=== PATIENT | female | born 1965 | race Caucasian/White ===

== ENCOUNTER 2017-02-08 07:49 | Inpatient (IN) | payer BC ==
[2017-01-11 10:14] VITALS: Ht 170.2 cm; Wt 178.4 kg
--- NOTE | 2017-01-11 10:35 | PAT Medication Instructions ---
Service Date Jan 11, 2017. Current Home Medication List Amoxicillin (Amoxicillin), 1 TAB PO BID Aspirin (Aspirin Ec), 81 MG PO QAM Cetirizine (Zyrtec), 10 MG PO QPM Cholecalciferol (Vitamin D), 5,000 INTER.UNIT PO QAM Furosemide (Lasix), 40 MG PO QAM Irbesartan (Avapro), 300 MG PO QAM Levothyroxine Sodium (Synthroid), 75 MCG PO QAM Magnesium Oxide (Mag-Oxide), 400 MG PO QPM Potassium Chloride Pwd (Klor-Con Pwd), 40 MEQ PO QAM Potassium Chloride Pwd (Klor-Con Pwd), 60 MEQ PO QPM Pyridoxine (Vitamin B6), 100 MG PO QPM Tramadol (Ultram), 50 MG PO Q4H PRN for Pain [Cataflam], 50 MG PO QAM [Retin A], 1 APPLN TOP QPM Medication Instructions For Your Scheduled Surgery - Hold the following medications 1 week prior to surgery per surgeon's instructions: [Cataflam], 50 MG PO QAM - Hold the following medications 24 hours prior to surgery: [Retin A], 1 APPLN TOP QPM - Hold the following medications the morning of surgery: Irbesartan (Avapro), 300 MG PO QAM Furosemide (Lasix), 40 MG PO QAM Cholecalciferol (Vitamin D), 5,000 INTER.UNIT PO QAM - Take the following medications the morning of surgery with a sip of water OTHERWISE NOTHING TO EAT OR DRINK AFTER MIDNIGHT: Tramadol (Ultram), 50 MG PO Q4H PRN for Pain (may take if needed up to 4 hours prior to surgery) Aspirin (Aspirin Ec), 81 MG PO QAM Levothyroxine Sodium (Synthroid), 75 MCG PO QAM Amoxicillin (Amoxicillin), 1 TAB PO BID - Take the following medications as scheduled the night before surgery: Tramadol (Ultram), 50 MG PO Q4H PRN for Pain Cetirizine (Zyrtec), 10 MG PO QPM Magnesium Oxide (Mag-Oxide), 400 MG PO QPM Potassium Chloride Pwd (Klor-Con Pwd), 40 MEQ PO QAM Potassium Chloride Pwd (Klor-Con Pwd), 60 MEQ PO QPM Pyridoxine (Vitamin B6), 100 MG PO QPM Amoxicillin (Amoxicillin), 1 TAB PO BID If you have any questions please call us at [phone] or [phone] or [phone]
[2017-01-11 11:13] LABS: BASO % 1.2 %; BASO ABS # 0.09 K/uL (0-0.2); COMPLETE YES; HEMATOCRIT 42.7 % (37-47); IG% 0.4 %; LYMPH % 20.2 %; LYMPH ABS # 1.57 K/uL (1.2-3.4); MEAN CORPUSCULAR HEMOGLOBIN 29.6 pg (25-34); MEAN CORPUSCULAR HGB CONC 32.6 g/dl (32-36); MEAN PLATELET VOLUME 10.4 fL (7.4-10.4); MONO % 6.8 %; NEUT % 65.4 %; PLATELET COUNT 327 K/uL (130-400); RED BLOOD COUNT 4.69 M/uL (4.2-5.4); WHITE BLOOD COUNT 7.77 K/uL (4.8-10.8)
--- NOTE | 2017-01-11 11:17 | DIAGNOSTIC IMAGING REPORT ---
CHEST PREADMISSION(PA/LAT) CLINICAL HISTORY: Preoperative evaluation. COMPARISON STUDY: Chest radiograph October 28, 2014. FINDINGS: Incidental note is made of an azygos fissure. There is no pneumothorax or pleural effusion. There is no consolidation to suggest pneumonia. Pulmonary vascularity is normal. Cardiomediastinal silhouette is normal. The appearance of the chest is unchanged. IMPRESSION: No acute cardiopulmonary findings. Electronically signed by: Hiram Romero M.D. 01/11/2017 11:16 AM Dictated Date/Time: 01/11/2017 11:16 AM
[2017-01-11 11:25] LABS: PARTIAL THROMBOPLASTIN RATIO 1.1; PROTHROMBIN TIME (PATIENT) 10.3 SECONDS (9.0-12.0)
[2017-01-11 12:40] LABS: BUN/CREATININE RATIO 15.2 (10-20); CALCIUM 9.4 mg/dl (8.5-10.1); CREATININE 0.76 mg/dl (0.60-1.20); POTASSIUM 4.3 mmol/L (3.5-5.1)
[2017-01-11 12:42] LABS: C-REACTIVE PROTEIN 1.07 mg/dl (0-0.29)
--- NOTE | 2017-01-31 18:46 | HISTORY & PHYSICAL EXAMINATION ---
DATE OF ADMISSION: 02/08/2017 CHIEF COMPLAINT: Left knee pain. HISTORY OF PRESENT ILLNESS: A 51-year-old female from [facility] who is now about 2 years out from a right knee replacement, presents for surgical treatment of her left knee. She has got a long history of bilateral knee pain and discomfort. She went through extensive conservative treatment over the years which has failed. She underwent a right knee replacement 2 years ago and has done well from this. She has continued to be bothered by pain and discomfort in her left knee. She has been through extensive conservative care including viscous supplementations, steroid shots. She has tried to lose weight but unsuccessfully. Walking tolerance is a couple of blocks. She has nighttime pain. She would like to have her left knee replaced. PAST MEDICAL HISTORY: 1. Hypertension. 2. Hypothyroidism. 3. Morbid obesity with a BMI of 61.5. 4. Low back pain/sciatica. PAST SURGICAL HISTORY: Include: 1. Tonsillectomy. 2. . 3. Tubal ligation. 4. Cholecystectomy. 5. Herniorrhaphy. 6. Right knee replacement done on 11/19/2014. ALLERGIES: DUST AND MOLD. CURRENT MEDICINES: Include 1. Avapro 300 mg daily. 2. Klor-Con 20 mEq a day. 3. Lasix 40 mg a day. 4. Magnesium oxide 400 mg a day. 5. Magnesium B6 100 mg a day. 6. Vitamin D 5000 international units a day. 7. Cataflam 50 mg a day. 8. Mobic 7.5 mg a day. 9. Tramadol p.r.n. 10. Amoxicillin for acne. 11. Retin-A for acne. 12. Synthroid 75 mcg a day. 13. Claritin 1 tablet as needed for allergies. SOCIAL HISTORY: This is a 51-year-old female patient from [place]. 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 REVIEW OF SYSTEMS: Negative for diabetes, neurologic problems, vascular problems, bleeding disorders. Denies any chest pain or shortness of breath. No history of DVT or PE. No known bleeding problems. PHYSICAL EXAMINATION: GENERAL: Obese, middle-aged female. HEENT: Benign. NECK: Supple. No lymphadenopathy. LUNGS: Clear to auscultation. HEART: Has a regular rate and rhythm. ABDOMEN: Soft, nontender, nondistended. EXTREMITIES: Grossly neurovascularly intact except as follows: Examination of the left knee reveals a large soft tissue envelope. Range of motion about 5 degrees short of full extension to 105 degrees of flexion limited by her soft tissues. No gross instability. No pain with hip motion. She does limp on the side when she walks. X-RAYS: X-rays of the left knee were reviewed. It shows advanced left knee DJD. She has complete loss of her medial joint space. She has some tibial femoral subluxation. ASSESSMENT: A 51-year-old female, 2 years out from right knee replacement with advanced left knee degenerative joint disease. She has failed conservative treatment. She would like to proceed with left knee replacement. PLAN: We talked about treatment and knee replacement. Will proceed. I did talk to her about the increased risk with her size and the risk specifically infection and wear and loosening. The patient understands and desires to proceed. Informed consent was obtained. Additional risks include but not limited to DVT, PE, , infection, neurological injury, vascular injury, bleeding problems, pain, limited range of motion, stiffness, failure to relieve her symptoms, incomplete relief of symptoms, need for further surgery in the future, etc. were explained. The patient understands and desires to proceed. Informed consent was obtained. As far as discharge plans, she is planning to be discharged home using [facility] home health program. We will likely consider putting some vancomycin into the cement due to her size and increased risk of infection. MARI
[2017-02-08] VITALS (9 sets, daily range): BP systolic 101–142; BP diastolic 69–82; PULSE 79–99; TEMP 36.5–36.9; O2SAT 94–99
[~2017-02-08] VITALS: Ht 170.2 cm; Wt 178.4 kg
[~2017-02-08 07:49] MED LIST: ACETAMINOPHEN 500 MG TAB PO SCH; AMX500 PO; ASPI81TA28 PO; BUPIVACAINE 0.5 % 5 MG/1 ML PF 10ML VIAL ONE; BUPIVACAINE LIPOSOME 266 MG, BUPIVACAINE/EPINEPHRINE INJ 50 ML, SODIUM CHLORIDE 0.9% PF... INFIL SCH; BUPIVACAINE/EPINEPHRINE 0.25% 10 ML VIAL ONE; CATAFLAM PO; CEFAZOLIN 3000 MG/65 ML D5W 65 ML IV SCH; CETI10TA84 PO; CHOL100010 PO; FAMOTIDINE 20 MG TAB PO SCH; GABAPENTIN 300 MG CAP PO SCH; IRBE-39 PO; LACTATED RINGER'S 1000ML 1,000 ML IV SCH; LACTATED RINGER'S 1000ML IV SCH; LACTATED RINGER'S 500 ML IV SCH; LSX/40 PO; MAGN400T24 PO; METOCLOPRAMIDE HCL 10 MG TAB PO SCH; POTA1POW PO; PYRI100T4 PO; RETIN A TOP; SCOPOLAMINE 1.5 MG TDSY TD SCH; SYN75 PO; TRAM-10 PO; TRANEXAMIC ACID INJ 1,000 MG in SODIUM CHLORIDE 0.9% 100ML 100 ML IV SCH
--- NOTE | 2017-02-08 08:31 | History & Physical Bridge Note ---
H&P Re-Evaluation Bridge Note: I have examined the patient, reviewed the History & Physical and in the interval since the performance of the History & Physical I have noted the following changes of clinical significance: No changes noted
[2017-02-08] MEDS ORDERED: ATROPINE SULFATE 0.1 MG/ML 5ML SYR IV PRN (09:00)
[2017-02-08] MEDS ORDERED: EpHEDrine SULFATE INJ 50 MG/ML AMP IV PRN (09:00)
[2017-02-08] MEDS ORDERED: ONDANSETRON INJ 2 MG/ML 2 ML VIAL IV PRN ×2 (09:00→13:15)
[2017-02-08] MEDS ORDERED: MEPERIDINE HCL 25 MG/ML CARP IV PRN (09:00)
[2017-02-08] MEDS ORDERED: PHENYLEPHRINE 100MCG/ML 5ML SYR IV PRN (09:00)
[2017-02-08] MEDS ORDERED: LABETALOL HCL IV 5 MG/ML 20ML IV PRN (09:00)
[2017-02-08] MEDS ORDERED: FENTANYL CITRATE INJ 50 MCG/1 ML 2 ML VIAL IV PRN (09:00)
[2017-02-08] MEDS ORDERED: NALOXONE HCL 0.4 MG/1 ML VIAL/CARP IV PRN (09:00)
[2017-02-08] MEDS ORDERED: HYDROmorphone INJ 2 MG/ML SYR/VIAL IV PRN (09:00)
[2017-02-08] MEDS ORDERED: FLUMAZENIL 0.1 MG/1 ML 10 ML VIAL IV PRN (09:00)
[2017-02-08] MEDS ORDERED: MIDAZOLAM HCL 1 MG/ML 2ML VIAL ONE ×2 (09:21→11:01)
[2017-02-08] MEDS ORDERED: SODIUM CHLORIDE 0.9% PF 50 ML VIAL ONE (10:33)
[2017-02-08] MEDS ORDERED: BUPIVACAINE LIPOSOME 1/3% 266 MG/20 ML VIAL INFIL ONE (10:33)
[2017-02-08] MEDS ORDERED: BACITRACIN 50000 UNIT VIAL ONE (10:33)
[2017-02-08] MEDS ORDERED: VANCOMYCIN HCL 1000MG/20ML VIAL ONE (10:34)
[2017-02-08] MEDS ORDERED: BUPIVACAINE/EPINEPHRINE 0.25% 10 ML VIAL ONE (10:43)
[2017-02-08] MEDS ORDERED: BUPIVACAINE/EPINEPHRINE 0.25% 1:200,000 30 ML VIAL ONE (11:00)
[2017-02-08] MEDS ORDERED: KETAMINE HCL INJ 50 MG/ML 10 ML VIAL ONE (11:01)
[2017-02-08] MEDS ORDERED: ONDANSETRON INJ 2 MG/ML 2 ML VIAL ONE (12:06)
[2017-02-08] MEDS ORDERED: PHENYLEPHRINE 100MCG/ML 5ML SYR ONE (12:07)
[2017-02-08] MEDS ORDERED: PROPOFOL IV EMULSION 10 MG/ML 20 ML VIAL IV ONE (12:44)
[2017-02-08] MEDS ORDERED: EpHEDrine SULFATE 50MG/5ML SYR ONE (13:11)
--- NOTE | 2017-02-08 13:12 | [facility] Post Operative Brief Note ---
Immediate Operative Summary Operative Date Feb 08, 2017. Pre-Operative Diagnosis Advanced Left Knee Degenerative Joint Disease Post-Operative Diagnosis Advanced Left Knee Degenerative Joint Disease Procedure(s) Performed Left Total Knee Arthroplasty Surgeon Dr. Garcia Wine Specialist Surgeon(s) JOANN Cunningham Estimated Blood Loss 50 ml Findings Left Knee DJD Fluids (cc crystalloids) 1300 cc Specimens A. Left Knee Bone and Tissue Drains None Anesthesia Spinal Complication(s) None Disposition Recovery Room / PACU
[2017-02-08] MEDS ORDERED: MAGNESIUM HYDROXIDE SUSP 30 ML UDC PO PRN (13:15)
[2017-02-08] MEDS ORDERED: ZOLPIDEM TARTRATE 5 MG TAB PO PRN (13:15)
[2017-02-08] MEDS ORDERED: MoRPHine SULFATE 2 MG/ML CARP IV PRN (13:15)
[2017-02-08] MEDS ORDERED: METOCLOPRAMIDE HCL INJ 5 MG/ML 2 ML VIAL IV PRN (13:15)
[2017-02-08] MEDS ORDERED: SILVER SULFADIAZINE 1% CR 50 GM JAR EXT PRN (13:15)
[2017-02-08] MEDS ORDERED: BISACODYL 10 MG SUPP PR PRN (13:15)
[2017-02-08] MEDS ORDERED: DiphenhydrAMINE HCL 50 MG/ML VIAL IV PRN (13:15)
[2017-02-08] MEDS ORDERED: ALUMINUM/MAGNESIUM/SIMETH (MAALOX MAX) 30 ML UDC PO PRN (13:15)
--- NOTE | 2017-02-08 13:57 | DIAGNOSTIC IMAGING REPORT ---
LEFT KNEE 1 OR 2 VIEWS ROUTINE CLINICAL HISTORY: 51 years-old Female presenting with left degenerative joint disease. TECHNIQUE: Frontal and crosstable lateral views of the left knee were obtained. COMPARISON: 11/08/2016. FINDINGS: Postsurgical changes of total left knee arthroplasty with patellar resurfacing. Expected intra-articular and soft tissue emphysema. Overlying skin petty. No evidence of acute fracture or hardware complication. IMPRESSION: Expected postsurgical findings status post total left knee arthroplasty with patellar resurfacing. Electronically signed by: Brennan Phelan M.D. 02/08/2017 1:56 PM Dictated Date/Time: 02/08/2017 1:55 PM
--- NOTE | 2017-02-08 14:03 | Anesthesiology Progress Note ---
Anesthesia Post Op Note Date & Time Feb 08, 2017 at 14:03 Vital Signs Pain Intensity: 0 Vital Signs Past 12 Hours Date Time Temp Pulse Resp B/P (MAP) Pulse Ox O2 Delivery O2 Flow Rate FiO2 02/08/17 13:55 36.6 85 16 117/76 98 Nasal Cannula 3 02/08/17 13:40 36.6 83 16 107/74 98 Nasal Cannula 3 02/08/17 13:25 93 16 104/77 98 Nasal Cannula 3 02/08/17 13:16 36.5 91 16 108/75 98 Nasal Cannula 3 02/08/17 08:58 95 Room Air 02/08/17 08:57 36.8 90 20 104/82 Notes Mental Status: alert / awake / arousable, participated in evaluation Pt Amnestic to Procedure: Yes Nausea / Vomiting: adequately controlled Pain: adequately controlled Airway Patency, RR, SpO2: stable & adequate BP & HR: stable & adequate Hydration State: stable & adequate Neuraxial Anesthesia: was administered, sensory block is resolving Anesthetic Complications: no major complications apparent
[2017-02-08] MEDS: OXYCODONE HCL IR 5 MG TAB (IMMEDIATE RELEASE) PO PRN (15:13)
[2017-02-08] MEDS: CHECK SCOPOLAMINE PATCH PLACEMENT SCH ×2 (15:34→23:47)
[2017-02-08] MEDS: D5W AND 1/2NSS + 20MEQ KCL 1,000 ML IV SCH ×2 (15:34→21:19)
[2017-02-08] MEDS: KETOROLAC TROMETHAMINE 30 MG/ML VIAL IV. SCH ×2 (15:41→21:34)
[2017-02-08] MEDS: FERROUS GLUCONATE 324 MG TAB PO SCH (18:02)
[2017-02-08] MEDS ORDERED: TRANEXAMIC ACID INJ 1,000 MG in SODIUM CHLORIDE 0.9% 100ML 100 ML IV SCH (19:15)
[2017-02-08] MEDS: CEFAZOLIN IV 2,000 MG in DEXTROSE 5% 50ML 50 ML IV SCH (20:12)
[2017-02-08] MEDS ORDERED: [UNRECOGNIZED DRUG - OTHER] TOP SCH (21:00)
[2017-02-08] MEDS: ASPIRIN 325 MG ECTAB PO SCH (21:20)
[2017-02-08] MEDS: CETIRIZINE HCL 10 MG TAB PO SCH (21:20)
[2017-02-08] MEDS: SENNA 8.6 MG TAB PO SCH (21:20)
[2017-02-08] MEDS: AMOXICILLIN 500 MG CAP PO SCH (21:20)
[2017-02-08] MEDS: DOCUSATE SODIUM 100 MG CAP PO SCH (21:20)
[2017-02-08] MEDS: MAGNESIUM OXIDE 400 MG TAB PO SCH (21:21)
[2017-02-08] MEDS: POTASSIUM CHLORIDE PWD 20 MEQ PACK PO SCH (21:22)
[2017-02-08] MEDS: PYRIDOXINE HCL 50 MG TAB PO SCH (21:23)
[2017-02-08] MEDS: TAPENTADOL ER 50 MG TABCR PO SCH (21:28)
[2017-02-08] MEDS: ACETAMINOPHEN 500 MG TAB PO SCH (21:33)
--- NOTE | 2017-02-08 23:21 | OPERATIVE REPORT ---
DATE OF OPERATION: 02/08/2017 SURGEON: Bj Garcia MD ECMO SPECIALIST: JOANN Locke PREOPERATIVE DIAGNOSIS: Left knee degenerative joint disease. POSTOPERATIVE DIAGNOSIS: Same. PROCEDURE PERFORMED: Left cemented posterior stabilized total knee arthroplasty. COMPLICATIONS: None. ESTIMATED BLOOD LOSS: 50 mL. FLUID REPLACEMENT: 1300 mL crystalloid fluid replacement. TOURNIQUET TIME: 83 minutes at 400 mmHg. ANESTHESIA: Spinal with adductor canal block. DRAINS: None. SPECIMENS: Left knee sent for pathology. OPERATIVE INDICATIONS: The patient is a 51-year-old morbidly obese female who has had a long history of bilateral knee pain and discomfort. She underwent a right knee replacement 2 years ago and has done extremely well from this. She had failed conservative treatment with respect to her left knee and elected to proceed with total knee arthroplasty. OPERATIVE FINDINGS: Operative findings revealed extensive advanced grade 4 [id number] disease in all 3 compartments, most severe in the medial and patellofemoral compartments. She had a varus deformity to her knee. Large knee joint effusion. Very large soft tissue envelope. OPERATIVE IMPLANTS: Operative implants consisted of: 1. Biomet Vanguard size 67.5 left posterior stabilized femoral component. 2. Biomet Vanguard 360 size 75 tibial tray with a 5-mm offset and a 14 x 80-mm stem and a small cruciate wing. 3. A 12-mm posterior stabilized polyethylene insert. 4. A 31 x 8 all poly patella. OPERATIVE PROCEDURE: The patient was taken to the operating room, identified and placed on the operating table in the supine position. All contact areas were appropriately padded. IV antibiotics were provided by anesthesia team. A spinal anesthetic and adductor canal block had been provided in the holding area. Pope catheter was placed in sterile fashion. Left thigh tourniquet was then placed. The left lower extremity was then prepped and draped in the usual sterile fashion. The left lower leg was elevated and exsanguinated with Esmarch and tourniquet was placed at 400 mmHg. An anterior approach of the left knee was then performed through a longitudinal incision centered over the patella. Sharp dissection was carried through the subcutaneous tissues down to the level of the extensor mechanism. She did have a very short quad tendon. A medial parapatellar arthrotomy incision was made and as a result, I had to extend this incision up into the muscle belly. Some subperiosteal dissection was carried out medially. The fat pad was resected from beneath the patellar tendon. The leg was then subluxated laterally. The knee was flexed. The osteophytes were taken off the distal femur. The ACL and PCL were released from the distal femur and the tibia subluxated anteriorly. The tibia was subluxated anteriorly. I then used a saw to resect the tibial eminence. I elected to place a tibial stem due to her extremely large size and deformity to her knee and concerns with early loosening of the tibial tray. An intramedullary guide was placed. I then reamed up to a size 14. The intramedullary cutting guide was then placed on the tibia to cut 2 mm off the most deficient aspect of the medial side. The tibial cut was made. Tibia was sized to a size 75. Some osteophytes were taken off medial and posteromedially. The tibia was then prepared for a small cruciate wing and a 5-mm offset stem. Once this was performed, a trial implant was placed and fit perfectly. Attention was then drawn to the femur. The distal femur was entered with a sharp drill. Intramedullary canal was suctioned. A left 5-degree valgus cutting guide was placed. Distal femoral cutting block was then pinned in place. Distal femoral cut was made to take an additional 3 mm of bone off the distal femur. The femur was then sized to a size 67.5. We did downsize this slightly. The AP cutting block was pinned parallel to the epicondylar axis, which was 5 degrees of external rotation. The anterior cut, anterior chamfer, posterior cut, and posterior chamfer cuts were made. Box cutting guide was placed and adjusted slightly lateral and the box cut was made. The knee was flexed. The remnants of the medial and lateral menisci were excised. The osteophytes were taken off the posterior aspect of the femur. Trial femoral component was placed. We then placed the tibial insert. The 10 insert just seemed a little bit loose, so we used a 12, which seemed to fit perfectly. Attention was then drawn to the patella. The patella was cleaned of all soft tissues. The patella thickness measured 23 mm and cut down to 14. It was sized to a size 31 patella. Lug holes were drilled for the 31 patella. Lateral osteophyte was removed. Patellar button was placed. Knee was taken through range of motion and the patella tracked nicely with no thumbs test. Attention was then drawn toward placement of permanent components. All trial implants were removed. The wound was irrigated with copious amounts of pulsatile lavage solution. A double batch of Palacos G cement was then mixed with an additional gram of vancomycin due to her increased risk of infection. A size 67.5 left posterior stabilized femoral component, size 75 Vanguard 360 tray with a stem was then placed with cementing the metaphyseal and surface segments only and a 31 x 8 all poly patella were then cemented in place. All extraneous cement was removed. The knee was brought out into full extension until cement hardened. A final cement check was then performed. Pericapsular tissues were injected with 100 mL of a combination of 20 mL of Exparel, 30 mL of normal saline, and 50 mL of 0.25% Marcaine with epinephrine. The patient did receive 1 gram of tranexamic acid. The tourniquet was then let down for a tourniquet time of 83 minutes. Hemostasis was assured with use of electrocautery. The wound was once again irrigated. The extensor mechanism was then closed with a combination of #1 PDS suture and #1 Vicryl suture in a [id number] fashion. Extensor mechanism was checked and found to be intact. The subcutaneous tissues were then closed with 2-0 Dexon suture in a buried interrupted fashion. Skin was closed with skin petty. Leg was then cleaned and dried and a sterile dressing of Xeroform, 4 x 4, sterile cast padding and Júnior bandage were applied. The patient was then transferred to the recovery room in stable condition. The patient tolerated the procedure well with no complications. All needle and sponge counts were correct at the end of the operation. I attest to the content of the Intraoperative Record and any orders documented therein. Any exception s are noted below.
[2017-02-09 04:09] VITALS: BP 129/82; PULSE 85; TEMP 36.8; O2SAT 96
[2017-02-09] MEDS: D5W AND 1/2NSS + 20MEQ KCL 1,000 ML IV SCH ×2 (04:21→10:28)
[2017-02-09] MEDS: KETOROLAC TROMETHAMINE 30 MG/ML VIAL IV. SCH ×4 (04:23→22:06)
[2017-02-09] MEDS: CEFAZOLIN IV 2,000 MG in DEXTROSE 5% 50ML 50 ML IV SCH (04:27)
[2017-02-09] MEDS: LEVOTHYROXINE 75 MCG TAB PO SCH (06:02)
[2017-02-09] MEDS: ACETAMINOPHEN 500 MG TAB PO SCH ×3 (06:03→22:06)
[2017-02-09 06:31] LABS: HEMATOCRIT 36.9 % (37-47); MEAN CELL VOLUME 92.5 fL (80-100); MEAN CORPUSCULAR HEMOGLOBIN 29.8 pg (25-34); MEAN CORPUSCULAR HGB CONC 32.2 g/dl (32-36); MEAN PLATELET VOLUME 10.3 fL (7.4-10.4); PLATELET COUNT 268 K/uL (130-400); RED BLOOD COUNT 3.99 M/uL (4.2-5.4); WHITE BLOOD COUNT 9.08 K/uL (4.8-10.8)
[2017-02-09 07:01] LABS: BUN/CREATININE RATIO 13.1 (10-20); CALCIUM 8.2 mg/dl (8.5-10.1); CREATININE 0.82 mg/dl (0.60-1.20); POTASSIUM 5.1 mmol/L (3.5-5.1)
[2017-02-09 07:30] VITALS: BP 124/72; PULSE 80; TEMP 36.9; O2SAT 93
--- NOTE | 2017-02-09 07:58 | Anesthesiology Progress Note ---
Anesthesia Post Op Note Date & Time Feb 09, 2017 at 07:58 Vital Signs Pain Intensity: 0.0 Vital Signs Past 12 Hours Date Time Temp Pulse Resp B/P (MAP) Pulse Ox O2 Delivery O2 Flow Rate FiO2 02/09/17 07:30 36.9 80 16 124/72 (89) 93 Room Air 02/09/17 04:09 36.8 85 16 129/82 (98) 96 Room Air 02/08/17 23:55 Room Air 02/08/17 23:30 36.5 99 16 142/69 (93) 96 Room Air Notes Mental Status: alert / awake / arousable, participated in evaluation Pt Amnestic to Procedure: Yes Nausea / Vomiting: adequately controlled Pain: adequately controlled Airway Patency, RR, SpO2: stable & adequate BP & HR: stable & adequate Hydration State: stable & adequate Neuraxial Anesthesia: was administered, sensory block resolved Anesthetic Complications: no major complications apparent
[2017-02-09] MEDS: CHECK SCOPOLAMINE PATCH PLACEMENT SCH ×3 (08:00→23:49)
[2017-02-09] MEDS: POTASSIUM CHLORIDE PWD 20 MEQ PACK PO SCH ×2 (08:36→22:05)
[2017-02-09] MEDS: MULTIVITAMIN TAB PO SCH (08:37)
[2017-02-09] MEDS: OXYCODONE HCL IR 5 MG TAB (IMMEDIATE RELEASE) PO PRN (08:37)
[2017-02-09] MEDS: IRBESARTAN 150 MG TAB PO SCH (08:37)
[2017-02-09] MEDS: TAPENTADOL ER 50 MG TABCR PO SCH ×2 (08:37→21:03)
[2017-02-09] MEDS: CHOLECALCIFEROL 1000 INTER.UNIT TAB PO SCH (08:37)
[2017-02-09] MEDS: PANTOprazole SOD 40 MG TAB PO SCH (08:37)
[2017-02-09] MEDS: ASPIRIN 325 MG ECTAB PO SCH ×2 (08:38→21:03)
[2017-02-09] MEDS: FERROUS GLUCONATE 324 MG TAB PO SCH ×3 (08:38→17:45)
[2017-02-09] MEDS: FUROSEMIDE 40 MG TAB PO SCH (08:38)
[2017-02-09] MEDS: DOCUSATE SODIUM 100 MG CAP PO SCH ×2 (08:38→21:03)
[2017-02-09] MEDS: DICLOFENAC SOD 25 MG TABEC PO SCH (08:38)
[2017-02-09] MEDS: AMOXICILLIN 500 MG CAP PO SCH ×2 (08:38→21:04)
[2017-02-09 11:00] VITALS: BP 108/66; PULSE 85; TEMP 36.9; O2SAT 93
[2017-02-09 15:14] VITALS: BP 127/80; PULSE 86; TEMP 36.6; O2SAT 100
--- NOTE | 2017-02-09 15:18 | PROGRESS NOTE ---
DATE: 02/09/2017 DATE: 02/09/2017 SUBJECTIVE: A 51-year-old female postop day 1 from a left knee replacement. She is doing pretty well. Pain is controlled. Denies any chest pain or shortness of breath. Not feeling dizzy or lightheaded. OBJECTIVE: VITAL SIGNS: Temperature 36.9. Vital signs stable. PHYSICAL EXAMINATION: GENERAL: Pleasant, middle-aged female. She is sitting up in her bedside chair talking to her family. Looks pretty comfortable. EXTREMITIES: Examination of the left leg reveals the dressing to be clean, dry and intact. She can dorsiflex and plantarflex her foot appropriately. She is neurologically intact. LABORATORY DATA: Hemoglobin is 11.9, hematocrit 36.9. Electrolytes are stable. ASSESSMENT: A 51-year-old white female postop day 1 from left knee replacement, doing well. Pain is controlled. She is neurologically intact. PLAN: 1. DVT prophylaxis including thigh-high TEDs, SCDs, and aspirin twice a day. 2. PT/OT. Weight bear as tolerated. Left total knee protocol. 3. Pain control. Doing pretty well with current pain regimen. 4. Disposition. Plan to discharge to home with some home health once adequately recovered.
[2017-02-09] MEDS ORDERED: ASPEC325 PO (21:00)
[2017-02-09] MEDS ORDERED: ACET-24 PO (21:00)
[2017-02-09] MEDS ORDERED: MORP-157 PO (21:00)
[2017-02-09] MEDS ORDERED: RXC5 PO (21:00)
--- NOTE | 2017-02-09 21:03 | Discharge Instructions ---
Discharge Instructions Date of Service Feb 09, 2017. Admission Reason for Admission: Left Knee Degenerative Joint Disease Discharge Discharge Diagnosis / Problem: Left Knee Replacement Discharge Goals Goal(s): Decrease discomfort, Improve function, Increase independence, Improve disease control, Therapeutic intervention Activity Recommendations Activity Limitations: per Instructions/Follow-up section Weightbearing Status: Left weightbearing . Instructions / Follow-Up Instructions / Follow-Up ACTIVITY RECOMMENDATIONS: Physical Therapy: * You will go to physical therapy three times each week for four to six weeks after your surgery in order to regain your knee range of motion and to retrain your knee to work properly. * It is just as important to make sure you are getting your knee perfectly straight as it is to regain your knee bend. * Taking a pain pill an hour before therapy can help you have a more productive and comfortable therapy session. Home Exercise: * You were shown a series of exercises (heel props, heel slides, etc.) in the hospital. Do these exercises three to four times each day including the exercises you were shown in physical therapy. Walking: * Get up and walk several times each day. For the first four weeks, try not to stand or walk for more than one hour at a time. If you do stand or walk for more than one hour, you will not hurt anything, but your knee and leg will likely swell. * As you feel comfortable, you may change from the walker or crutches to a cane and then to independent walking. MEDICATIONS: New Medicine: * You will likely be taking one or more of these medications: 1. MS Contin - A long-acting pain medication. Take 1 tablet twice a day for the first ten days to decrease your baseline level of pain. 2. Oxycodone - A quick and shorter-acting pain medication. Take one to two tablets every four to six hours to lessen your pain. 3. Aspirin - Thins your blood to lessen the chance of forming a blood clot. * The most common side effects of pain medicine and iron are nausea and constipation. If nausea or constipation is too much of a problem or if you have any questions about your new medicines or doses, call [facility] at . We will try to help you manage these issues. VERY IMPORTANT TO READ AND REVIEW" Pain: * The immediate post-operative period after knee replacement surgery is often quite painful. * You are given a prescription for pain medicine. You should take it, as directed, when you need it, especially before physical therapy and before going to bed. Pain that interferes with sleep is very common and can last several months. * You will likely need pain medicine for the first four to six weeks. It will not stop all of the pain. The pain will lessen and as you feel better, you may change to milder pain medicine such as Tylenol. * The most common side effects of pain medicine are nausea and constipation, so don't take more than you need. SPECIAL CARE INSTRUCTIONS: TEDs/Elastic Stockings: * The white elastic stockings help limit swelling and prevent blood clots from forming in your legs. The more you wear them, the more they work. * Wear them for six weeks after knee replacement surgery and four weeks after partial knee replacement. Prevention of Infection: * Take antibiotics one hour before any dental cleaning, dental work, urological procedure, gastrointestinal procedure or any invasive surgery in order to prevent your new joint from getting infected. * You may get the antibiotics from the doctor performing the procedure or you may call our office at before and we will call in a prescription to the pharmacy of your choice. Things to Watch For: * Drainage from the incision site that occurs more than one week after your surgery. * Severely increased knee/leg pain or swelling. * Increased redness at the incision site. * Fever above 102 degrees Fahrenheit. * Unusual chest pain or shortness of breath. * Unusual pain or burning with urination. Call [facility] at with any of the above problems or if you have any questions about your medicines or recovery. FOLLOW UP VISIT: Make an appointment to see your doctor for approximately two weeks after surgery for a progress check and staple removal by calling the office at . Current Hospital Diet Patient's current hospital diet: Regular Diet Discharge Diet Recommended Diet: Regular Diet Procedures Procedures Performed: Left Total Knee Arthroplasty Pending Studies Studies pending at discharge: no Medical Emergencies . Who to Call and When: Medical Emergencies: If at any time you feel your situation is an emergency, please call [phone] immediately. . Non-Emergent Contact Non-Emergency issues call your: Surgeon . "Provider Documentation" section prepared by Bj Garcia. . VTE Core Measure Inpt VTE Proph given/why not?: Other Anticoagulation, T.E.D. Stockings, SCD's
[2017-02-09] MEDS: MAGNESIUM OXIDE 400 MG TAB PO SCH (22:05)
[2017-02-09] MEDS: SENNA 8.6 MG TAB PO SCH (22:05)
[2017-02-09] MEDS: CETIRIZINE HCL 10 MG TAB PO SCH (22:06)
[2017-02-09] MEDS: PYRIDOXINE HCL 50 MG TAB PO SCH (22:06)
[2017-02-09 22:55] VITALS: BP 133/77; PULSE 93; TEMP 36.7; O2SAT 95
[2017-02-10] MEDS: KETOROLAC TROMETHAMINE 30 MG/ML VIAL IV. SCH ×2 (04:50→09:48)
[2017-02-10 06:10] VITALS: BP 146/83; PULSE 89; TEMP 36.5; O2SAT 97
[2017-02-10] MEDS: LEVOTHYROXINE 75 MCG TAB PO SCH (06:27)
[2017-02-10] MEDS: ACETAMINOPHEN 500 MG TAB PO SCH (06:28)
[2017-02-10 07:20] VITALS: BP 138/84; PULSE 89; TEMP 36.7; O2SAT 98
[2017-02-10] MEDS: FERROUS GLUCONATE 324 MG TAB PO SCH (07:29)
[2017-02-10] MEDS: CHOLECALCIFEROL 1000 INTER.UNIT TAB PO SCH (07:30)
[2017-02-10] MEDS: MULTIVITAMIN TAB PO SCH (07:30)
[2017-02-10] MEDS: FUROSEMIDE 40 MG TAB PO SCH (07:30)
[2017-02-10] MEDS: PANTOprazole SOD 40 MG TAB PO SCH (07:30)
[2017-02-10] MEDS: IRBESARTAN 150 MG TAB PO SCH (07:31)
[2017-02-10] MEDS: DICLOFENAC SOD 25 MG TABEC PO SCH (07:31)
[2017-02-10] MEDS: DOCUSATE SODIUM 100 MG CAP PO SCH (07:33)
[2017-02-10] MEDS: OXYCODONE HCL IR 5 MG TAB (IMMEDIATE RELEASE) PO PRN (07:37)
[2017-02-10] MEDS: TAPENTADOL ER 50 MG TABCR PO SCH (07:37)
[2017-02-10 08:17] VITALS: BP 138/84; PULSE 89; TEMP 36.7; O2SAT 98
[2017-02-10] MEDS: POTASSIUM CHLORIDE PWD 20 MEQ PACK PO SCH (08:45)
[2017-02-10] MEDS: AMOXICILLIN 500 MG CAP PO SCH (08:45)
[2017-02-10] MEDS: ASPIRIN 325 MG ECTAB PO SCH (08:45)
[2017-02-10 09:07] VITALS: O2SAT 98
--- NOTE | 2017-02-10 14:25 | PROGRESS NOTE ---
DATE: 02/10/2017 DATE: 02/10/2017 SUBJECTIVE: A 51-year-old white female postop day 2 from left knee replacement. She is doing well. Pain is controlled. Therapy has gone pretty well. She feels like she is ready to go home. OBJECTIVE: VITAL SIGNS: Temperature 36.7. Vital signs stable. PHYSICAL EXAMINATION: GENERAL: Reveals a pleasant, middle-aged female. She is sitting up at her bedside chair and looks pretty comfortable. LUNGS: Clear to auscultation. HEART: Regular rate and rhythm. ABDOMEN: Soft, nontender, nondistended. EXTREMITY EXAMINATION: Grossly neurovascularly intact except as follows: Examination of the left leg reveals the dressing to be clean, dry and intact. She can dorsiflex and plantarflex her foot appropriately. She is neurologically intact. ASSESSMENT: A 51-year-old white female postoperative day 2 from a left knee replacement, doing well. Pain is controlled. She is neurologically intact. PLAN: 1. DVT prophylaxis including thigh-high TEDs, SCDs, and aspirin twice a day. 2. PT/OT. Weightbearing as tolerated. Left total knee protocol. 3. Pain control. Doing well with current pain regimen. 4. Disposition. Plan to discharge to home with some home health later today.
--- NOTE | 2017-02-15 15:22 | DISCHARGE SUMMARY ---
ADMITTING PHYSICIAN AND SURGEON: Dr. Garcia. ADMITTING DIAGNOSIS: Left knee degenerative joint disease. SURGERY PERFORMED: Left total knee arthroplasty. SECONDARY DIAGNOSES: Hypertension, hypothyroidism, mild obesity, low back pain, sciatica. CONSULTS: None obtained. HISTORY AND PHYSICAL EXAMINATION: Well documented in the patient's chart. HOSPITAL COURSE: The patient was admitted on 02/08/2017 underwent total knee arthroplasty, tolerated the procedure well. There were no complications. She was transferred to PACU postoperatively and later to the orthopedic floor for further care. She was given Ancef for antibiotic prophylaxis, AMARILIS stockings, SCDs and aspirin for DVT prophylaxis. Hemoglobin, hematocrit and vital signs were monitored during her hospital stay and remained stable. She did not require any blood transfusions. There were no complications. By postoperative day 2, she was tolerating a regular diet, pain was controlled with oral pain medicine. She was participating in physical therapy and had no signs or symptoms of deep vein thrombosis. On postop day 2, she was discharged home and set up with home health services, given printed discharge instructions including prescriptions for extra strength Tylenol, aspirin 325 mg b.i.d., MS Contin, oxycodone. Continue her home medications with the exception of her home dose of aspirin which was changed. Continue physical therapy, weightbearing as tolerated, AMARILIS stockings. Follow up in 10-12 days or sooner if there are any problems or concerns.
== END 2017-02-10 11:41 | disposition home health service (06) | DRG 470 ==
LOC: C.ACU 07:49 → C.3E 08:05 → ENRESERV 13:32
PROVIDERS: ADMIT Orthopaedic Surgery Sports Medicine; ATTEND Orthopaedic Surgery Sports Medicine
PROC: 0SRD0J9 Replacement of Left Knee Joint with Synthetic Substitute, Cemented, Open Approach (ICD-10-PCS; principal; 2017-02-08 10:30)
DX: M17.12 Unilateral primary osteoarthritis, left knee (principal); Z68.44 Body mass index [BMI] 60.0-69.9, adult; I10 Essential (primary) hypertension; E66.01 Morbid (severe) obesity due to excess calories; E03.9 Hypothyroidism, unspecified; M54.5 Low back pain; M54.10 Radiculopathy, site unspecified; M25.462 Effusion, left knee; M21.162 Varus deformity, not elsewhere classified, left knee; Z79.82 Long term (current) use of aspirin; Z79.899 Other long term (current) drug therapy; Z79.891 Long term (current) use of opiate analgesic

== ENCOUNTER 2022-01-14 08:11 | Observation (INO) ==
--- NOTE | 2022-01-01 11:44 | PAT Medication Instructions ---
Medication Instructions Date of Service January 01, 2022 Home Medications acetaminophen 500 mg tablet (Tylenol Extra Strength) 500 mg PO Q6H PRN Pain aspirin 81 mg tablet,delayed release (Adult Low Dose Aspirin) 81 mg PO QAM celecoxib 100 mg capsule 100 mg PO BID furosemide 40 mg tablet (Lasix) 40 mg PO QAM irbesartan 75 mg tablet 75 mg PO QAM potassium chloride 20 mEq tablet,extended release 100 meq PO QAM tramadol 50 mg tablet 50 mg PO HS PRN Pain cholecalciferol (vitamin D3) 125 mcg (5,000 unit) tablet (Vitamin D3) 125 mcg PO QAM levothyroxine 75 mcg tablet 75 mcg PO QAM magnesium 500 mg tablet 500 mg PO HS pyridoxine (vitamin B6) 100 mg tablet (Vitamin B-6) 100 mg PO QAM tramadol 50 mg tablet 50 mg PO BID vitamins A,C,A-wqkc-givvzv 14,320 unit-226 mg-200 unit capsule (PreserVision AREDS) 1 cap PO QAM ASK your surgeon for instructions celecoxib 100 mg capsule 100 mg PO BID STOP taking 2 weeks before surgery vitamins A,C,W-izft-vbgodt 14,320 unit-226 mg-200 unit capsule (PreserVision AREDS) 1 cap PO QAM DO NOT take the morning of surgery furosemide 40 mg tablet (Lasix) 40 mg PO QAM irbesartan 75 mg tablet 75 mg PO QAM potassium chloride 20 mEq tablet,extended release 100 meq PO QAM cholecalciferol (vitamin D3) 125 mcg (5,000 unit) tablet (Vitamin D3) 125 mcg PO QAM pyridoxine (vitamin B6) 100 mg tablet (Vitamin B-6) 100 mg PO QAM Take morning of surgery With a small sip of water, OTHERWISE NOTHING TO EAT OR DRINK AFTER MIDNIGHT: acetaminophen 500 mg tablet (Tylenol Extra Strength) 500 mg PO Q6H PRN Pain (if needed) aspirin 81 mg tablet,delayed release (Adult Low Dose Aspirin) 81 mg PO QAM (unless surgeon directed otherwise) tramadol 50 mg tablet 50 mg PO HS PRN Pain (if needed) levothyroxine 75 mcg tablet 75 mcg PO QAM tramadol 50 mg tablet 50 mg PO BID (if needed) Take evening before surgery acetaminophen 500 mg tablet (Tylenol Extra Strength) 500 mg PO Q6H PRN Pain (if needed) tramadol 50 mg tablet 50 mg PO HS PRN Pain (if needed) magnesium 500 mg tablet 500 mg PO HS tramadol 50 mg tablet 50 mg PO BID Other Notes If you have any questions please call us at [phone] or [phone] or [phone] or [phone]
--- NOTE | 2022-01-05 14:04 | Anesthesiology Consultation ---
Date of Service January 05, 2022 Assessment & Plan (1) Encounter for pre-operative examination: Chart Review Chart Review: Acceptable Risk for Surgery (pending preop Covid testing results ) and Patient seen in Pre Admission Testing Per PAT appt on 01/05/22, patient denies any recent travel or large group activities. No known Covid positive exposures or Covid related symptoms. No known Covid infection in the past 90 days. Pt is vaccinated for Covid. Preop Covid testing scheduled 01/12/22 = will await results. Educated on importance of self quarantining, social distancing and wearing mask in public for the patient one week prior to surgery and after Covid testing done Teaching & Discussion Pre-Anesthesia Teaching/Discussion Notes: Instructed NPO after midnight before surgery,except medications with 15 cc of water. Medication instructions provided according to the [facility] guidelines. History Surgery Operation Date: 01/14/22 08:50 Proposed Procedures p Right Total Hip Arthroplasty - jB Garcia MD Height/Weight Height: 5 ft 7 in Weight: 155.6 kg Allergies Allergy/AdvReac Type Severity Reaction Status Date / Time mold Allergy Unknown ITCHY EYES Verified 01/01/22 07:53 NOSE No Known Drug Allergies Allergy Unknown NONE Verified 01/01/22 07:53 pollen extracts Allergy Unknown SNEEZING, Verified 01/01/22 07:53 WATERY EYES Dust Allergy Unknown SEASONAL Uncoded 01/01/22 07:53 ALLERGY Medications Home Medications Medication Instructions Recorded Confirmed Last Taken acetaminophen 500 mg tablet 500 mg PO Q6H PRN Pain 12/31/21 01/01/22 Unknown (Tylenol Extra Strength) aspirin 81 mg tablet,delayed 81 mg PO QAM 12/31/21 01/01/22 Unknown release (Adult Low Dose Aspirin) celecoxib 100 mg capsule 100 mg PO BID 12/31/21 01/01/22 Unknown furosemide 40 mg tablet (Lasix) 40 mg PO QAM 12/31/21 01/01/22 Unknown irbesartan 75 mg tablet 75 mg PO QAM 12/31/21 01/01/22 Unknown potassium chloride 20 mEq 100 meq PO QAM 12/31/21 01/01/22 Unknown tablet,extended release tramadol 50 mg tablet 50 mg PO HS PRN Pain 12/31/21 01/01/22 Unknown cholecalciferol (vitamin D3) 125 125 mcg PO QAM 01/01/22 01/01/22 Unknown mcg (5,000 unit) tablet (Vitamin D3) levothyroxine 75 mcg tablet 75 mcg PO QAM 01/01/22 01/01/22 Unknown magnesium 500 mg tablet 500 mg PO HS 01/01/22 01/01/22 Unknown pyridoxine (vitamin B6) 100 mg 100 mg PO QAM 01/01/22 01/01/22 Unknown tablet (Vitamin B-6) tramadol 50 mg tablet 50 mg PO BID 01/01/22 01/01/22 Unknown vitamins A,C,E-ivui-mobsij 14,320 1 cap PO QAM 01/01/22 01/01/22 Unknown unit-226 mg-200 unit capsule (PreserVision AREDS) Past Medical History Medical History Chronic back pain Deejay's thyroiditis Hypertension Osteoarthritis Exercise / Class Metabolic Activity III < 4 Walking/Shop/Light housework (no chest pain or SOB with one flight of stairs- goes very slowly due hip pain ) Past Family History Family History Other No family history of adverse response to anesthesia Past Surgical History Surgical History History of bilateral tubal ligation History of section History of cholecystectomy History of colonoscopy History of dilatation and curettage History of incisional hernia repair History of tonsillectomy S/P knee replacement bilateral 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 No hx of seizures, stroke, IA, apnea/snoring. No hx of blood clots or blood transfusions Physical Exam Vital Signs VITALS BP 105/70 P 79 TEMP 98.1 SP02 95% RESP 16 Constitutional no acute distress ENMT Mouth: no TMJ clicking Thyromental Distance: > or= 3.5 Finger Breadths (3.5) Mallampati Class: II (smaller airway ) Neck neck extension not limited Respiratory normal respiratory effort; no respiratory distress Auscultation: lungs clear to auscultation bilaterally; no wheezes Cardiovascular Rate/Rhythm: regular rate and regular rhythm Heart Sounds: no murmur Vessels: no carotid bruit Musculoskeletal Spine: no pain with cervical ROM Extremities: extremities normal to inspection Psychiatric Orientation: alert Lab Results Anesthesia Preop Results Results Anesthesia Widget: WBC 7.75 K/ul (4.8-10.8) 01/05/22 Hgb 13.6 g/dl (12.0-16.0) 01/05/22 Hct 40.1 % (34.1-44.9) 01/05/22 Plt 258 K/uL (130-400) 01/05/22 Na 140 mmol/L (136-145) 01/05/22 K 4.0 mmol/L (3.5-5.1) 01/05/22 Cl 106 mmol/L (98-107) 01/05/22 CO2 28 mmol/L (21-32) 01/05/22 BUN 15 mg/dl (6-23) 01/05/22 Creat 0.67 mg/dl (0.6-1.2) 01/05/22 Glucose Level 92 mg/dl (70-99(Fasting)) 01/05/22 PT 10.4 Seconds (9.0-12.0) 01/05/22 PTT 26.7 Seconds (21.0-31.0) 01/05/22 INR 1.0 (0.9-1.1) 01/05/22 HA1c 5.2 % (4.5-5.6) 01/05/22 Blood Type B Negative 01/05/22 Antibody Screen NEGATIVE 01/05/22 Testing Electrocardiogram Date: 01/05/22 Findings: + NSR @ (75bpm ) and + no change from (January 11, 2017 per cardio ) Incomplete RBBB. Chest X-Ray Date: 01/05/22 Findings: + NAD FINDINGS: PA and lateral chest radiographs are compared to study dated 01/11/2017. The cardiomediastinal silhouette is top normal for projection. Chronic interstitial thickening is similar to previous. The lungs appear hyperinflated. There is bibasilar scarring/atelectasis. No airspace consolidation or large pleural effusion is identified. An accessory azygous fissure is incidentally noted. There is no pneumothorax. The skeletal structures are osteopenic. The bony thorax appears intact. Degenerative change is noted in the thoracic spine.
[~2022-01-14 08:11] MED LIST changes: -AMX500 PO; -ASPI81TA28 PO; -BUPIVACAINE LIPOSOME 266 MG, BUPIVACAINE/EPINEPHRINE INJ 50 ML, SODIUM CHLORIDE 0.9% PF... INFIL SCH; -BUPIVACAINE/EPINEPHRINE 0.25% 10 ML VIAL ONE; -CATAFLAM PO; -CEFAZOLIN 3000 MG/65 ML D5W 65 ML IV SCH; -CETI10TA84 PO; -CHOL100010 PO; +CeleBREX 200 MG CAP PO SCH; -GABAPENTIN 300 MG CAP PO SCH; -IRBE-39 PO; -LACTATED RINGER'S 1000ML 1,000 ML IV SCH; -LACTATED RINGER'S 1000ML IV SCH; -LACTATED RINGER'S 500 ML IV SCH; +LR 500ML BOLUS, THEN 15ML/HR IV SCH; +LR 60ML/HR IV SCH; -LSX/40 PO; -MAGN400T24 PO; -METOCLOPRAMIDE HCL 10 MG TAB PO SCH; +METOCLOPRAMIDE HCL 10 MG TABLET PO SCH; -POTA1POW PO; -PYRI100T4 PO; -RETIN A TOP; -SCOPOLAMINE 1.5 MG TDSY TD SCH; -SYN75 PO; +Scopolamine 1 MG TDSY TD SCH; -TRAM-10 PO; +TRANEXAMIC ACID 1,000 MG **IV Pre-op IV SCH; -TRANEXAMIC ACID INJ 1,000 MG in SODIUM CHLORIDE 0.9% 100ML 100 ML IV SCH
[2022-01-14 08:47] LABS: Hematocrit (blood only) 40.9 % (34.1-44.9); Hemoglobin 13.4 g/dl (12.0-16.0); Mean Corpuscular Hemoglobin 30.7 pg (25.0-34.0); Mean Corpuscular Hgb Conc 32.8 g/dL (32.0-36.0); Mean Corpuscular Volume 93.8 fL (80.0-100.0); Mean Platelet Volume 10.3 fL (9.4-12.3); Platelet Count 241 K/uL (130-400); RDW Coefficient of Variation 13.5 % (11.5-14.5); RDW Standard Deviation 46.5 fL (36.4-46.3); Red Blood Count 4.36 M/uL (3.93-5.22); White Blood Count 6.39 K/ul (4.8-10.8)
[2022-01-14] MEDS ORDERED: MIDAZOLAM HCL 1 MG/ML 2ML VIAL ONE ×2 (10:13→11:12)
[2022-01-14] MEDS ORDERED: MoRPHine SULFATE PF 1 MG/ML 10 ML AMP/VIAL ONE (10:33)
--- NOTE | 2022-01-14 10:44 | History & Physical Bridge Note ---
Date of Service January 14, 2022 History & Physical Bridge Note I have examined the patient, reviewed the History & Physical and in the interval since the performance of the History & Physical I have noted the following changes of clinical significance: no changes noted
[2022-01-14] MEDS ORDERED: EPINEPHrine INJ 1 MG/ML AMP ONE (10:47)
[2022-01-14] MEDS ORDERED: BUPIVACAINE 0.5 % 5 MG/1 ML MPF 30ML VIAL ONE (10:48)
[2022-01-14] MEDS ORDERED: PROPOFOL IV EMULSION 10 MG/ML 20 ML VIAL IV ONE ×2 (10:49→12:21)
[2022-01-14] MEDS ORDERED: ONDANSETRON INJ 2 MG/ML 2 ML VIAL ONE (10:52)
[2022-01-14] MEDS ORDERED: NALOXONE HCL 1 MG in SODIUM CHLORIDE 0.9% 1000ML 1,000 ML IV PRN (10:53)
[2022-01-14] MEDS ORDERED: MoRPHine SULFATE PF 1 MG/ML 10 ML AMP/VIAL INT SPINAL ONE (10:53)
[2022-01-14] MEDS ORDERED: LACTATED RINGER'S 500 ML IV PRN (10:53)
[2022-01-14] MEDS ORDERED: NALOXONE HCL 0.4 MG/1 ML VIAL/CARP IV PRN ×2 (10:53→13:56)
[2022-01-14] MEDS ORDERED: ePHEDrine sulfate 50 MG/ML AMP IV PRN (10:53)
[2022-01-14] MEDS ORDERED: ONDANSETRON INJ 2 MG/ML 2 ML VIAL IV PRN (10:53)
[2022-01-14] MEDS ORDERED: KETOROLAC 30 MG/ML VIAL IV PRN (10:53)
[2022-01-14] MEDS ORDERED: diphenhydrAMINE 50 MG/ML VIAL IV PRN (10:53)
[2022-01-14] MEDS ORDERED: NALOXONE HCL 0.08 MG in SYRINGE 1.8 ML IV PRN (10:53)
[2022-01-14] MEDS ORDERED: MEPERIDINE HCL 25 MG/ML CARP/VIAL IV PRN (10:53)
[2022-01-14] MEDS ORDERED: NALBUPHINE HCL INJ 10 MG/ML AMP IV PRN (10:53)
[2022-01-14] MEDS ORDERED: PROMETHAZINE HCL 12.5 MG in SODIUM CHLORIDE 0.9% 50 ML IV PRN (10:53)
[2022-01-14] MEDS ORDERED: SODIUM CHLORIDE 0.9% 1000ML 1,000 ML IV SCH (11:00)
[2022-01-14] MEDS ORDERED: NO NARCOTICS OR SEDATIVES SCH (11:00)
[2022-01-14] MEDS ORDERED: DC INTRASPINAL MORPHINE SCH (11:00)
[2022-01-14] MEDS ORDERED: fentaNYL citrate 100 MCG/2 ML VIAL ONE (12:14)
--- NOTE | 2022-01-14 13:29 | Operative Report ---
PG Post Operative Report Pre & Post Diagnosis Operation Date: 01/14/22 10:40 Pre-Op Diagnosis: Right Hip Degenerative Joint Disease Post-Op Diagnosis: Right Hip Degenerative Joint Disease I identified the patient and participated in the time-out.: Yes Procedure Operation Date: 01/14/22 10:40 Actual Procedures p Right Total Hip Arthroplasty(Right) - Bj Garcia MD Surgeon Bj Garcia MD Bilingual Research Interviewer Price Betancourt PA-C Estimated Blood Loss 300 Findings Consistent with Post-Op Diagnosis Operative findings were advanced right hip DJD. She had pretty extensive grade 4 [id number] disease of the femoral head and acetabulum. Significant erosive disease of the acetabular as well as the femoral head. Moderate-sized joint effusion. Specimens Right femoral head sent for pathology Anesthesia Type Spinal MAC Complications none Indications Patient is a 56-year-old female with past several year history of increasing right hip pain discomfort is gotten secondarily worse over the past year. She failed all conservative measures. She is attempted weight loss but with limited success. She has lost somewhat weight but having difficulty due to her limited mobility. X-rays show advanced right hip arthritis. She elected proceed with surgical treatment. She was fully aware that based on her size that she is at increased risk for a complication from the surgery. Description of Procedure Operative implants consist of: 1. Biomet G7 size 54 mm acetabular shell. 2. 6.5 cancellous acetabular screws 135 mm length 1 to 25 mm length. 3. [place] hole director operations broadcast. 4. Highly cross-linked polyethylene liner with a 54 mm outer diameter and 36 mm inner diameter. 5. DePuy Karaya size 13 KLA femoral stem. 6. +5/36 mm ceramic articular ball. The patient was taken the operating, identified and, and placed on the operating table supine position protectors were properly padded. IV antibiotics tried by anesthesia team. A spinal anesthetic had been implemented in the holding area. Pope catheter was placed in sterile fashion. The patient was then placed in the left lateral cubitus position. Axillary roll was placed. A Stulberg hip positioner was used for positioning. Right hip and leg were then prepped and draped in usual sterile fashion. A posterior lateral approach of the right hip was then performed through a curvilinear incision centered over the greater trochanter. Sharp dissection was carried through subcutaneous tissue down to level the IT band gluteal fascia. She had very thick subcutaneous tissue fat layer. The IT band gluteal fascia was incised longitudinally in line with skin incision. The underlying greater bursa was excised. The piriformis and external rotators were taken off the posterior aspect of the hip joint along with the posterior capsule as a single layer taking great care to protect the sciatic nerve at all times. The hip was internally rotated and dislocated. A femoral neck osteotomy cut was made with Final Cut about 6 mm above the lesser trochanter. Femoral head was removed and sent for pathology. The femur was retracted anteriorly. Attention drawn the acetabulum. The acetabular labrum was excised. The posterior pulmonary fat was excised. Sequential reaming the acetabular was then performed again with size 45 and progressing up to 53. I did ream some with a 54 reamer. I then placed a 54 mm Biomet ostia tied acetabular component. 2 screws were used to fix this. Some osteophytes removed. Attention drawn the femur. The proximal femur was entered with a [employer] cutter followed by canal finder. I then broached begin sized 8 and progressing up to 12. Got pretty good fit with a 12. We trialed the hip with different neck options. After extensive evaluation we elected used the a standard KLA stem. We used a +5 head which recreated leg length and offset appropriately and soft tissue tension appropriately. Hip was fully stable in full extension and external rotation and flexion to 90 degrees internal Tatian over [address] elect to place these implants. I did use an ostial tied cup in order to maximize her acetabular stability. All trial implants were removed. An apex hole director operations broadcast was placed but highly cross-linked polyethylene liner was placed. I did decide to place a 13 stem as the 12 stem was just seemed a little bit loose on final trial. A size 13 stem was placed. A +5/36 mm ceramic articular ball was placed. Hip was located once again found to be stable. I could not quite get this femoral component or quite sit down the calcar which was certainly acceptable. Attention drawn toward closing. Wounds irrigated scope sounds pulsatile lavage solution. I did inject locally with 60 cc of half percent Marcaine with epinephrine. The posterior capsule and external rotators were repaired through drill holes in the posterior trochanter with #2 Tycron suture in a single layer. The IT band gluteal fascia then closed in 1 PDS suture in a running fashion for subcutaneous tissues were then closed i n 3 layers with 2 deep layers with #2 Vicryl suture in the subcutaneous tissues with 2-0 Dexon suture in a buried interrupted fashion. Skin was closed skin petty. Legs then cleaned and dried and a Prevena VAC dressing was applied. The patient then transferred to the recovery room in stable condition. Patient tolerated procedure well no complications. Price Betancourt, my physician minister assistant, was present for the entire procedure. His assistance was essential and required for appropriate patient positioning, prepping and draping, surgical exposure, performing the technical details of the operation, placement the implants, closure of the wound, and placement of the sterile bandage. I attest to the content of the Intraoperative Record and any orders documented therein. Any exceptions are noted below.
--- NOTE | 2022-01-14 13:46 | XRay Report ---
XR hip 1V RT w pelvis CLINICAL HISTORY: IN PACU - A/P PELVIS and LATERAL HIP . Status post total hip replacement COMPARISON STUDY: 12/31/2021 TECHNIQUE: 2 right hip views FINDINGS: The patient is status post total hip replacement. The prosthetic components are in anatomic alignment with no acute abnormality seen. Skin petty are seen from the recent procedure. IMPRESSION: 1. Status post total hip replacement. ACT 112: Negative or not required by law. Electronically signed by: Marcus Allen M.D. 01/14/2022 1:44 PM
--- NOTE | 2022-01-14 13:53 | Anesthesiology Progress Note ---
Date of Service January 14, 2022 Anesthesia Post Procedure Vital Signs Vital Signs: Temp Pulse Resp BP Pulse Ox O2 Del Method 01/14/22 13:50 60 20 115/66 96 Room Air 01/14/22 13:40 72 18 112/73 98 Room Air 01/14/22 13:30 64 15 103/67 100 Room Air 01/14/22 13:20 64 16 116/58 L 99 Room Air 01/14/22 13:13 36.1 C L 73 16 111/64 100 Room Air 01/14/22 08:39 36.7 C 80 18 116/74 98 Room Air Pain Intensity Right Hip: Pain Intensity: 4 Transfer of Care Handoff Completed per policy Notes Mental Status: alert / awake / arousable Patient Amnestic to Procedure: Yes Nausea / Vomiting: adequately controlled Pain: adequately controlled Airway Patency, RR, SpO2: stable & adequate BP & HR: stable & adequate Hydration State: stable & adequate Neuraxial Anesthesia: was administered and sensory block is resolving Anesthetic Complications: no major complications apparent
[2022-01-14] MEDS ORDERED: MAGNESIUM HYDROXIDE SUSP 30 ML UDC PO PRN (13:56)
[2022-01-14] MEDS ORDERED: METOCLOPRAMIDE HCL INJ 5 MG/ML 2 ML VIAL IV PRN (13:56)
[2022-01-14] MEDS ORDERED: ALUMINUM/MAGNESIUM SUSP 30 ML UDC PO PRN (13:56)
[2022-01-14] MEDS ORDERED: bisacodyL 10 MG SUPP PR PRN (13:56)
[2022-01-14] MEDS: ACETAMINOPHEN 500 MG TAB PO SCH ×2 (17:11→21:14)
[2022-01-14] MEDS: Scopolamine CHECK PATCH PLACEMENT SCH (18:38)
[2022-01-14] MEDS: SODIUM CHLORIDE 0.9% 1000ML 1,000 ML IV SCH (18:38)
[2022-01-14] MEDS ORDERED: TRANEXAMIC ACID / 0.7% NACL 1,000 MG/100 ML BAG IV SCH (19:30)
[2022-01-14] MEDS: ASPIRIN 81 MG ECTAB PO SCH (20:18)
[2022-01-14] MEDS: ASCORBIC ACID 500 MG TAB PO SCH (20:19)
[2022-01-14] MEDS: DOCUSATE SODIUM 100 MG CAP PO SCH (20:19)
[2022-01-14] MEDS ORDERED: MAGNESIUM OXIDE 400 MG TAB PO SCH (21:00)
[2022-01-14] MEDS ORDERED: SENNA 8.6 MG TAB PO SCH (21:00)
[2022-01-14] MEDS: ceFAZolin 2000MG 2,000 MG/15 ML SYR IV SCH (21:13)
[2022-01-15] MEDS: Scopolamine CHECK PATCH PLACEMENT SCH ×2 (01:03→08:13)
[2022-01-15] MEDS: ceFAZolin 2000MG 2,000 MG/15 ML SYR IV SCH (03:53)
[2022-01-15] MEDS ORDERED: oxyCODONE HCL IR 5 MG TAB (IMMEDIATE RELEASE) PO PRN (04:53)
[2022-01-15] MEDS ORDERED: HYDROmorphone INJ 0.5 MG/0.5 ML SYR IV PRN (04:53)
[2022-01-15] MEDS ORDERED: ONDANSETRON INJ 2 MG/ML 2 ML VIAL IV PRN (04:53)
[2022-01-15] MEDS: KETOROLAC 30 MG/ML VIAL IV SCH ×2 (05:15→09:51)
[2022-01-15] MEDS: ACETAMINOPHEN 500 MG TAB PO SCH (05:15)
[2022-01-15] MEDS ORDERED: Nursing to Pharmacy Communication SCH (05:30)
[2022-01-15 06:09] LABS: Basophils # (auto) 0.06 K/uL (0-0.2); Basophils % (auto) 0.6 %; Eosinophils # (auto) 0.24 K/uL (0-0.50); Eosinophils % (auto) 2.5 %; Hematocrit (blood only) 34.5 % (34.1-44.9); Hemoglobin 11.2 g/dl (12.0-16.0); Immature Granulocytes # (auto) 0.02 K/uL (0.00-0.02); Immature Granulocytes % (auto) 0.2 %; Lymphocytes # (auto) 0.91 K/uL (1.2-3.4); Lymphocytes % (auto) 9.6 %; Mean Corpuscular Hemoglobin 30.6 pg (25.0-34.0); Mean Corpuscular Hgb Conc 32.5 g/dL (32.0-36.0); Mean Corpuscular Volume 94.3 fL (80.0-100.0); Mean Platelet Volume 10.6 fL (9.4-12.3); Monocytes # (auto) 0.69 K/uL (0.24-0.82); Monocytes % (auto) 7.3 %; Neutrophils # (auto) 7.54 K/uL (1.4-6.5); Neutrophils % (auto) 79.8 %; Platelet Count 199 K/uL (130-400); RDW Coefficient of Variation 13.6 % (11.5-14.5); RDW Standard Deviation 46.6 fL (36.4-46.3); Red Blood Count 3.66 M/uL (3.93-5.22); White Blood Count 9.46 K/ul (4.8-10.8)
[2022-01-15] MEDS ORDERED: LEVOTHYROXINE SODIUM 75 MCG TABLET PO SCH (06:30)
[2022-01-15 06:31] LABS: BUN Creatinine Ratio 24.6 (10-20); Calcium 8.1 mg/dl (8.5-10.1); Creatinine Clr Calc Pharmacy 149.8 ml/min; Est GFR (African American) 114.2 ml/min; Est GFR (Non-African American) 98.6 ml/min; Potassium 4.3 mmol/L (3.5-5.1)
[2022-01-15] MEDS ORDERED: dexAMETHasone 10 MG in SYRINGE 0 ML IV SCH (08:00)
[2022-01-15] MEDS: DOCUSATE SODIUM 100 MG CAP PO SCH (08:12)
[2022-01-15] MEDS: ASCORBIC ACID 500 MG TAB PO SCH (08:12)
[2022-01-15] MEDS: ASPIRIN 81 MG ECTAB PO SCH (08:12)
[2022-01-15] MEDS: SODIUM CHLORIDE 0.9% 1000ML 1,000 ML IV SCH (08:20)
--- NOTE | 2022-01-15 08:32 | Progress Notes ---
DATE OF SERVICE: 01/15/2022 SUBJECTIVE: A 56-year-old white female postoperative day 1 from a right hip replacement. She is doi ng well. Had a good night. Not much pain. Says her pain is better than it was before surgery. She has gotten around with a walker. Hoping to go home. OBJECTIVE: VITAL SIGNS: Temperature 36.7. Vital signs are stable. PHYSICAL EXAMINATION: GENERAL: Shows a pleasant middle-aged female. She is sitting up in her bedside chair, looks comfort able. EXTREMITIES: Examination of the right hip and leg reveals the wound VAC to be in place. Leg lengths were equal. Hip is located. She is neurologically intact. LABORATORY DATA: Hemoglobin 11.2. Hematocrit 34.5. Electrolytes are stable. ASSESSMENT: A 56-year-old female postoperative day 1 from right hip replacement, doing well. Pain i s controlled. She is neurologically intact. Hip is located. PLAN: 1. DVT prophylaxis includes thigh-high TEDs, SCDs, and aspirin twice a day. 2. PT, OT, weightbear as tolerated. Right total hip protocol. 3. Pain control, doing okay with current pain regimen. 4. Disposition: Plan to discharge her home with some home health likely later today. Job ID: [id number]
[2022-01-15] MEDS ORDERED: CHOLECALCIFEROL 5,000 UNITS 125 MCG TAB PO SCH (09:00)
[2022-01-15] MEDS ORDERED: IRBESARTAN 75 MG TAB PO SCH (09:00)
[2022-01-15] MEDS ORDERED: CEROVITE ADV FORMULA TAB PO SCH (09:00)
[2022-01-15] MEDS ORDERED: FUROSEMIDE 40 MG TAB PO SCH (09:00)
[2022-01-15] MEDS ORDERED: MULTIVITAMIN TAB PO SCH (09:00)
--- NOTE | 2022-01-19 14:25 | Discharge Summary ---
Date of Service January 19, 2022 Discharge Data Procedures Performed Operation Date: 01/14/22 10:40 Actual Procedures p Right Total Hip Arthroplasty(Right) - Bj Garcia MD Hospital Course (1) S/P total right hip arthroplasty: This is a 56 year old patient admitted on 01/14/22 and underwent total hip arthroplasty. She tolerated the procedure well and there were no complications. Transferred to the PACU post op and later to the orthopedic floor for further care. She was given ancef for antibiotic prophylaxis. She was also given AMARILIS stockings, SCDs, and aspirin for DVT prophylaxis. Hemoglobin, hematocrit, and vital signs were monitored during her hospital stay and remained stable. Did not require any blood transfusions. There were no complications during her hospital stay. By post op day #1 the patient was tolerating a regular diet, pain was reasonably controlled with oral pain medicine, and she was participating in physical therapy. On post op day #1 the patient was discharged home and set up with home health care. She was given printed discharge instructions including prescriptions for extra strength tylenol, aspirin, toradol, zofran, senokot, cefadroxil, and oxycodone. Continue physical therapy, weight bearing as tolerated. Continue hip precautions. Continue AMARILIS stockings. Follow up approximately 2 weeks post op or sooner if there are problems or concerns. Coding Level of Care Code None Diagnoses S/P total right hip arthroplasty Z96.641
== END 2022-01-15 10:54 | disposition home health service (06) ==
LOC: ASU 08:11 → PACUINP 08:11 → 3E 18:23
DX: Z79.899 Other long term (current) drug therapy; M16.11 Unilateral primary osteoarthritis, right hip; Z79.82 Long term (current) use of aspirin